=== PATIENT | male | born 1975 | race Caucasian/White ===

== ENCOUNTER 2023-09-27 17:08 | Emergency (ER) | payer SELFPAY ==
[~2023-09-27] VITALS: Ht 182.9 cm; Wt 68.0 kg
[2023-09-27 17:09] VITALS: BP 131/103
[2023-09-27] MEDS ORDERED: DiphenhydrAMINE HCl 50 MG/ML 1ML Vial IV ONE (17:10)
[2023-09-27] MEDS ORDERED: Famotidine 10 MG/ML 2ML Vial IV ONE (17:10)
[2023-09-27] MEDS ORDERED: MethylPREDNISolone Sod Succ 125 MG Vial IV ONE (17:10)
[2023-09-27] MEDS ORDERED: EPIPEN0.3 MG/0.1 IM (18:17)
== END 2023-09-27 18:23 | disposition home or self-care (01) ==
LOC: ER 17:08
DX: T63.461A Toxic effect of venom of wasps, accidental (unintentional), initial encounter (principal); Z91.030 Bee allergy status
CPT/HCPCS: 96374; 96375; 99282-25; J1200; J2919